=== PATIENT | male | born 1965 | race Caucasian/White ===

== ENCOUNTER 2016-11-28 10:49 | Day surgery (SDC) | payer OTHER ==
[~2016-11-28] VITALS: Ht 177.8 cm; Wt 63.2 kg
[~2016-11-28 10:49] MED LIST: FLOMAX0.4 MG PO; NAPROSYN500 MG PO; NOHOMEMEDS; ROXICODONE15 MG PO; ZANAFLEX2 M1 PO
== END 2016-11-28 12:20 | disposition home or self-care (01) ==
LOC: PAIN 10:49 → SDC 11:15 → PAIN 11:15
DX: M47.26 Other spondylosis with radiculopathy, lumbar region (principal); M43.16 Spondylolisthesis, lumbar region; M54.5 Low back pain; G89.29 Other chronic pain; M47.812 Spondylosis without myelopathy or radiculopathy, cervical region; B18.2 Chronic viral hepatitis C; Z86.14 Personal history of Methicillin resistant Staphylococcus aureus infection; F10.21 Alcohol dependence, in remission; F17.210 Nicotine dependence, cigarettes, uncomplicated
CPT/HCPCS: J1030; J2250; J3010; S0020

== ENCOUNTER 2017-01-04 08:54 | Day surgery (SDC) | payer OTHER ==
[~2017-01-04] VITALS: Ht 177.8 cm; Wt 63.2 kg
== END 2017-01-04 11:20 | disposition home or self-care (01) ==
LOC: PAIN 08:54 → SDC 09:30 → PAIN 09:30
DX: M47.26 Other spondylosis with radiculopathy, lumbar region (principal); M43.17 Spondylolisthesis, lumbosacral region; M54.9 Dorsalgia, unspecified; G89.29 Other chronic pain; M47.812 Spondylosis without myelopathy or radiculopathy, cervical region; F41.9 Anxiety disorder, unspecified; N40.0 Benign prostatic hyperplasia without lower urinary tract symptoms; F17.210 Nicotine dependence, cigarettes, uncomplicated; Z79.891 Long term (current) use of opiate analgesic
CPT/HCPCS: J1030; J2250; J3010; S0020

== ENCOUNTER 2017-01-11 09:05 | Day surgery (SDC) | payer OTHER ==
[~2017-01-11] VITALS: Ht 177.8 cm; Wt 63.2 kg
[2017-01-11] MEDS ORDERED: BUSPAR5 MG PO (09:41)
== END 2017-01-11 11:00 | disposition home or self-care (01) ==
LOC: PAIN 09:05 → SDC 09:30 → PAIN 09:30
DX: M47.26 Other spondylosis with radiculopathy, lumbar region (principal); M54.5 Low back pain; G89.29 Other chronic pain; M43.17 Spondylolisthesis, lumbosacral region; Z79.891 Long term (current) use of opiate analgesic; Z86.14 Personal history of Methicillin resistant Staphylococcus aureus infection; F17.210 Nicotine dependence, cigarettes, uncomplicated
CPT/HCPCS: J1030; J2250; J3010; S0020

== ENCOUNTER → 2017-02-23 | Outpatient (CLI) | payer OTHER ==
[~2017-02-23] VITALS: Ht 177.8 cm; Wt 63.2 kg
[~2017-02-23] MED LIST changes: +BUSPAR5 MG PO
== END | disposition home or self-care (01) ==
LOC: AMB 12:30
DX: Z12.11 Encounter for screening for malignant neoplasm of colon (principal); D12.5 Benign neoplasm of sigmoid colon; K62.1 Rectal polyp; K55.20 Angiodysplasia of colon without hemorrhage; D64.9 Anemia, unspecified; B18.2 Chronic viral hepatitis C; F43.23 Adjustment disorder with mixed anxiety and depressed mood; G89.29 Other chronic pain; M47.812 Spondylosis without myelopathy or radiculopathy, cervical region; M47.26 Other spondylosis with radiculopathy, lumbar region; F19.11 Other psychoactive substance abuse, in remission; F17.200 Nicotine dependence, unspecified, uncomplicated; Z86.14 Personal history of Methicillin resistant Staphylococcus aureus infection; Z82.5 Family history of asthma and other chronic lower respiratory diseases; Z82.3 Family history of stroke; Z80.8 Family history of malignant neoplasm of other organs or systems
CPT/HCPCS: 88305; J2250; J3010